=== PATIENT | male | born 1970 | race Caucasian/White ===

== ENCOUNTER 2017-05-26 07:28 | Emergency (ER) | payer OTHER ==
[~2017-05-26] VITALS: Ht 180.3 cm; Wt 90.7 kg
[~2017-05-26 07:28] MED LIST: KEFLEX500 MG PO; LEVOTHYROXIN0.075 MG PO; VALIUM5 MG PO; XANAX1 MG PO
[2017-05-26] MEDS ORDERED: XANAX1 MG PO (09:27)
[2017-05-26] MEDS ORDERED: AMITRIPTYLINE H25 M2 PO (09:34)
[2017-05-26 09:37] VITALS: BP 164/100
== END 2017-05-26 09:38 | disposition home or self-care (01) ==
LOC: M.ERS 07:28
DX: Z76.0 Encounter for issue of repeat prescription (principal); E03.9 Hypothyroidism, unspecified; F41.9 Anxiety disorder, unspecified; F17.210 Nicotine dependence, cigarettes, uncomplicated